=== PATIENT | male | born 1990 | race Two or more races ===

== ENCOUNTER 2017-09-26 01:15 | Emergency (ER) | payer SELFPAY ==
[~2017-09-26] VITALS: Ht 185.4 cm; Wt 83.9 kg
[~2017-09-26 01:15] MED LIST: ADDERAL20 MG ORAL; CLONAZEPAM2 MG PO; CONCERTA54 MG PO; KLONOPIN1 MG ORAL
[2017-09-26 01:20] VITALS: BP 153/70
[2017-09-26] MEDS ORDERED: Cephalexin 500mg cap ORAL ONE (01:45)
[2017-09-26 02:39] LABS: APPEARANCE,URINE CLEAR; BILIRUBIN, URINE NEGATIVE (NEGATIVE); COLOR,URINE PALE YELLOW; GLUCOSE, URINE (UA) NEGATIVE (NEGATIVE); KETONES,URINE NEGATIVE (NEGATIVE); LEUKOCYTE ESTERASE ,URINE NEGATIVE (NEGATIVE); NITRITE,URINE NEGATIVE (NEGATIVE); PH,URINE 8 (4.5-8.0); PROTEIN,URINE NEGATIVE (NEGATIVE); UROBILINOGEN,URINE NORMAL MG/DL (0.0-1.0)
[2017-09-26 02:40] LABS: BASOPHILS % (AUTO) 0.5 % (0.0-2.0); EOSINOPHILS % (AUTO) 0.1 % (0.0-3.0); HEMOGLOBIN 17.9 G/DL (14.2-18.0); LYMPHOCYTES % (AUTO) 16.3 % (20.0-45.0); MEAN CORPUSCULAR VOLUME 94 FL (80-99); MONOCYTES % (AUTO) 9.9 % (1.0-10.0); NEUTROPHILS % (AUTO) 73.2 % (45.0-75.0); PLATELET COUNT 398 K/UL (150-450); RED BLOOD COUNT 5.52 M/UL (4.70-6.10); RED CELL DISTRIBUTION WIDTH 11.5 % (11.6-14.8); WHITE BLOOD COUNT 12.1 K/UL (4.8-10.8)
[2017-09-26 02:51] LABS: ANION GAP 12 mmol/L (5-15); BLOOD UREA NITROGEN 4 mg/dL (7-18); CALCIUM 7.8 MG/DL (8.5-10.1); CARBON DIOXIDE 28 MMOL/L (21-32); CHLORIDE 105 MMOL/L (98-107); CREATININE 1.1 MG/DL (0.55-1.30); POTASSIUM 3.2 MMOL/L (3.5-5.1); SODIUM 145 MMOL/L (136-145)
[2017-09-26 02:56] LABS: ALANINE AMINOTRANSFERASE 39 U/L (12-78); ALBUMIN 4.1 G/DL (3.4-5.0); ALKALINE PHOSPHATASE 71 U/L (46-116); ASPARTATE AMINO TRANSFERASE 43 U/L (15-37); BILIRUBIN,TOTAL 0.4 MG/DL (0.2-1.0)
[2017-09-26 03:20] VITALS: BP 128/72
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
[2017-09-26 05:20] VITALS: BP 113/71
[2017-09-26 07:01] VITALS: BP 124/80
[2017-09-26 11:12] VITALS: BP 120/76
== END 2017-09-26 11:20 | disposition home or self-care (01) ==
LOC: EDBD 01:15 → EMR 01:45
DX: F10.129 Alcohol abuse with intoxication, unspecified (principal); S61.411A Laceration without foreign body of right hand, initial encounter; W45.8XXA Other foreign body or object entering through skin, initial encounter; Y92.89 Other specified places as the place of occurrence of the external cause; F13.10 Sedative, hypnotic or anxiolytic abuse, uncomplicated; F29 Unspecified psychosis not due to a substance or known physiological condition; F41.9 Anxiety disorder, unspecified; F32.9 Major depressive disorder, single episode, unspecified
CPT/HCPCS: 12002; 36415; 80053; 80307; 81003; 85025; 99285; G0480; 80329